=== PATIENT | female | born 1990 | race Asian ===

== ENCOUNTER 2018-10-17 08:40 | Day surgery (SDC) | payer OTHER ==
[~2018-10-17 08:40] MED LIST: Buffered Lidocaine 1% SYRIN* 1 ML/SYRINGE INTRADERM ONE; Dexamethasone TAB* 4 MG PO ONE; DiMENhydriNATE IV* 50 MG/ML VIAL IV PUSH PRN; Famotidine IV* 10 MG/ML 2 ML (20 mg) IV ONE; Lactated Ringers 1000 ML Bag* 1,000 ML IV SCH; Morphine 4 MG/ML VIAL (1 ml) 4 MG/ML VIAL IV PRN; Naloxone* 0.4 MG/ML 1 ML VIAL IV PRN; Ondansetron TAB* 4 MG PO ONE; PROCHLORPERAZINE INJ 5 MG/ML 2 ML VIAL IV PRN; fentaNYL* 50 MCG/ML 2 ML VIAL (100 MCG VIAL) IV PRN; oxyCODONE/Acetamin 5/325 MG* TAB PO PRN
[2018-10-17] MEDS ORDERED: Ondansetron ODT TAB* 4 MG ONE (08:54)
[2018-10-17] MEDS ORDERED: Famotidine IV* 10 MG/ML 2 ML (20 mg) ONE (08:54)
[2018-10-17] MEDS ORDERED: ceFAZolin 2 GM in NS PREMIX(*) 2 GM/100 ML BAG IVPB ONE (08:54)
[2018-10-17] MEDS ORDERED: Dexamethasone TAB* 4 MG ONE (08:54)
[2018-10-17] MEDS ORDERED: fentaNYL* 50 MCG/ML 2 ML VIAL (100 MCG VIAL) ONE (09:03)
[2018-10-17] MEDS ORDERED: Midazolam* 1 MG/ML 2 ML VIAL (2 MG) ONE (09:03)
[2018-10-17 09:49] LABS: Hematocrit 40 % (33-41); Hemoglobin 13.7 g/dL (12.0-16.0); Mean Corpuscular HGB Conc 34 g/dL (31-36); Mean Corpuscular Hemoglobin 33 pg (27-31); Mean Corpuscular Volume 98 fL (80-97); Platelet Count 192 10^3/uL (150-450); Red Cell Distribution Width 12 % (10.5-15)
[2018-10-17] MEDS ORDERED: Bupivacaine 0.5%* 50 ML VIAL ONE (10:17)
[2018-10-17] MEDS ORDERED: PROCHLORPERAZINE INJ 5 MG/ML 2 ML VIAL ONE (10:47)
[2018-10-17] MEDS ORDERED: Propofol* 10 MG/ML 20 ML BTL ONE (10:47)
[2018-10-17] MEDS ORDERED: Ketorolac INJ* 30 MG/ML 1 ML VIAL ONE (10:47)
[2018-10-17] MEDS ORDERED: Lidocaine 2% PF * 5 ML VIAL ONE (10:49)
[2018-10-17] MEDS ORDERED: Morphine 10 MG/ML VIAL (1 ml) ONE (11:15)
[2018-10-17] MEDS ORDERED: oxyCODONE/Acetamin 5/325 MG* TAB ONE (12:24)
[2018-10-17] MEDS ORDERED: Morphine 4 MG/ML VIAL (1 ml) 4 MG/ML VIAL ONE (12:24)
[2018-10-17 13:03] VITALS: BP 119/84
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
== END 2018-10-17 13:34 | disposition home or self-care (01) ==
LOC: OR 08:40
PROVIDERS: ATTEND Orthopaedic Surgery
DX: S82.841A Displaced bimalleolar fracture of right lower leg, initial encounter for closed fracture (principal); V09.20XA Pedestrian injured in traffic accident involving unspecified motor vehicles, initial encounter; Y92.410 Unspecified street and highway as the place of occurrence of the external cause; C91.00 Acute lymphoblastic leukemia not having achieved remission
CPT/HCPCS: 36415; 76000; 81025; 85027; A9270-GY; C1713; C1776; J0690; J0780; J1885; J2250; J2270; J2704; J3010; J8540